=== PATIENT | female | born 2000 | race Caucasian/White ===

== ENCOUNTER 2018-07-06 15:30 | Emergency (ER) | payer OTHER ==
[~2018-07-06] VITALS: Ht 157.5 cm; Wt 55.0 kg
[2018-07-06] MEDS ORDERED: OB COMPLET2 PO (15:58)
[2018-07-06] MEDS ORDERED: KEFLEX500 M1 PO (17:10)
[2018-07-06] MEDS ORDERED: TORADOL PO (17:10)
[2018-07-06 18:00] VITALS: BP 105/57
== END 2018-07-06 18:17 | disposition home or self-care (01) ==
LOC: ED 15:30
DX: S61.310A Laceration without foreign body of right index finger with damage to nail, initial encounter (principal); W23.1XXA Caught, crushed, jammed, or pinched between stationary objects, initial encounter

== ENCOUNTER 2021-10-24 06:51 | Emergency (ER) | payer BC, MEDICAID ==
[~2021-10-24] VITALS: Ht 157.5 cm; Wt 59.1 kg
[2021-10-24] VITALS (12 sets, daily range): BP systolic 93–118; BP diastolic 54–96
[~2021-10-24 06:51] MED LIST: KEFLEX500 M1 PO; OB COMPLET2 PO; TORADOL PO
[2021-10-24 07:46] LABS: HEMATOCRIT 48.7 % (37.0-47.0); HEMOGLOBIN 15.8 g/dl (12.0-16.0); IMMATURE GRANULOCYTES 0.1 % (0.0-5.0); MEAN CELL VOLUME 85.4 fL CALC (80.0-100.0); MEAN CORPUSCULAR HGB 27.7 pG CALC (26.0-32.0); MEAN CORPUSCULAR HGB CONC 32.4 g/dL CAL (32.0-36.0); NEUT# 17.56 thou/uL (2.00-7.15); RED BLOOD COUNT 5.7 mill/uL (4.20-5.60); RED CELL DISTRI WIDTH 12.7 % (11.5-15.5)
[2021-10-24 07:47] LABS: URINE BLOOD DIPSTICK NEGATIVE (NEGATIVE); URINE COLOR YELLOW; URINE GLUCOSE - DIPSTICK NEGATIVE (NEGATIVE); URINE KETONE TRACE mg/dL (NEGATIVE); URINE LEUK ESTERASE TRACE (NEGATIVE); URINE PH 5.5 (4.5-8.0); URINE PROTEIN - DIPSTICK 100 mg/dL (NEG-TRACE); URINE SPECIFIC GRAVITY >=1.030; URINE UROBILINOGEN - DIPSTICK 0.2 E.U./dL (0.2)
[2021-10-24 07:49] LABS: URINE NITRITE - DIPSTICK NEGATIVE (Negative)
[2021-10-24 07:51] LABS: URINE BILIRUBIN - DIPSTICK NEGATIVE (NEGATIVE)
[2021-10-24 07:55] LABS: URINE RBC 0-2 RBC/hpf (0-5); URINE SQUAMOUS EPITHELIAL CELL MANY EPI/hpf (0-FEW)
[2021-10-24 07:56] LABS: URINE BACTERIA MANY hpf; URINE MUCUS FEW hpf (NONE-FEW)
[2021-10-24 08:08] LABS: ALBUMIN 5.4 g/dL (3.2-5.0); ALKALINE PHOSPHATASE 84 u/l (38-126); ANION GAP 19 (6-22 (CALC)); BILIRUBIN, TOTAL 0.5 mg/dL (0.0-1.4); BUN 17 mg/dL (7-17); BUN/CREATININE RATIO 19 (12-20 (CALC)); CARBON DIOXIDE 18 mmol/l (22-30); CHLORIDE 107 mmol/l (95-108); CREATININE 0.9 mg/dL (0.5-1.0); GFR > 60 ML/MIN (>=60 (CALC)); GFR FOR AFR.AMER. > 60 ML/MIN (>=60 (CALC)); LIPASE 83 u/l (23-300); POTASSIUM 4.4 mmol/l (3.5-5.1); SGOT/AST 24 u/l (14-36); SODIUM 139 mmol/l (137-146); TOTAL PROTEIN 9.7 g/dL (6.3-8.2)
[2021-10-24] MEDS ORDERED: ZOFRAN4 MG/TAB PO (09:31)
[2021-10-24] MEDS ORDERED: BENTYL10 M1 PO (09:31)
== END 2021-10-24 10:17 | disposition home or self-care (01) | DRG 761 ==
LOC: ED 06:51
PROVIDERS: Internal Medicine
DX: E28.9 Ovarian dysfunction, unspecified (principal); D75.89 Other specified diseases of blood and blood-forming organs
CPT/HCPCS: Q9967

== ENCOUNTER 2022-02-25 08:52 | Emergency (ER) | payer BC ==
[~2022-02-25] VITALS: Ht 157.5 cm; Wt 56.8 kg
[~2022-02-25 08:52] MED LIST changes: +BENTYL10 M1 PO; +ZOFRAN4 MG/TAB PO
[2022-02-25 09:29] VITALS: BP 122/75
[2022-02-25 09:30] VITALS: BP 117/79
[2022-02-25] MEDS ORDERED: BIRTH CONTROL (09:35)
[2022-02-25 10:00] VITALS: BP 108/70
[2022-02-25 10:30] VITALS: BP 109/70
[2022-02-25] MEDS ORDERED: AMOXICILLIN500 M2 PO (10:44)
[2022-02-25 10:47] VITALS: BP 109/70
== END 2022-02-25 10:52 | disposition home or self-care (01) | DRG 153 ==
LOC: ED 08:52
DX: J02.9 Acute pharyngitis, unspecified (principal); Z20.822 Contact with and (suspected) exposure to COVID-19

== ENCOUNTER 2022-06-08 09:20 | Emergency (ER) | payer BC ==
[2022-06-08] VITALS (7 sets, daily range): BP systolic 95–127; BP diastolic 68–82
[~2022-06-08] VITALS: Ht 157.5 cm; Wt 61.0 kg
[~2022-06-08 09:20] MED LIST changes: +AMOXICILLIN500 M2 PO; +BIRTH CONTROL
[2022-06-08] MEDS ORDERED: PRENATA4 PO (10:21)
[2022-06-08] MEDS ORDERED: PROVENTIL HFA IN (12:09)
== END 2022-06-08 12:18 | disposition home or self-care (01) | DRG 204 ==
LOC: ED 09:20
DX: R06.02 Shortness of breath (principal); Z20.822 Contact with and (suspected) exposure to COVID-19